=== PATIENT | male | born 1950 | race Caucasian/White ===

== ENCOUNTER 2017-12-17 21:23 | Emergency (ER) | payer MEDICARE ==
[~2017-12-17] VITALS: Ht 170.2 cm; Wt 70.0 kg
[~2017-12-17 21:23] MED LIST: ASPIRIN; ATEN25TA PO; BACI1PAC TP; CLON1PAT TD; DIAZ5TAB4 PO; DOXY100T10 PO; ENAL20TA PO; ENAL5TAB PO; ERGO500017 PO; FOLI-17 PO; FURO-93 PO; HYDR12.53 PO; HYDR25TA6 PO; LACT10SO28 PO; LACT20SO13 PO; MAGN400T7 PO; MAGN71.5; METO25TA35 PO; METR500T PO; MULT-154 PO; NICO-486 TD; NICO-487 TD; PANT40TA3 PO; RIFA550T4 PO; SPIR25TA5 PO; THIA100T10 PO; THIA100T67 PO; TRAM-47 PO
[2017-12-17 21:52] LABS: BASOPHILS # (AUTO) 0.06 x10^3/uL (0-0.1); BASOPHILS % (AUTO) 1 % (0-1); EOSINOPHILS # (AUTO) 0.14 x10^3/uL (0-0.4); EOSINOPHILS % (AUTO) 2 % (1-7); LYMPHOCYTES # (AUTO) 1.89 x10^3/uL (1-3.4); LYMPHOCYTES % (AUTO) 33 % (22-44); MD NO; MEAN CORPUSCULAR HEMOGLOBIN 34.7 pg (27.5-34.5); MEAN CORPUSCULAR VOLUME 99.2 fL (81-97); MEAN PLATELET VOLUME 8.4 fL (7.4-10.4); MONOCYTES # (AUTO) 0.69 x10^3/uL (0.2-0.8); MONOCYTES % (AUTO) 12 % (2-9); NEUTROPHILS # (AUTO) 2.88 x10^3/uL (1.8-6.8); NEUTROPHILS % (AUTO) 51 % (42-75); PLATELET COUNT 102 x10^3/uL (130-400); RED BLOOD COUNT 4.78 x10^6/uL (4.38-5.82); RED CELL DISTRIBUTION WIDTH 14.1 % (9.4-14.8)
[2017-12-17 21:59] LABS: ALANINE AMINOTRANSFERASE 234 U/L (12-78); ALBUMIN 3.9 g/dL (3.4-5.0); ANION GAP 18 mmol/L (5-15); CALCIUM 8.9 mg/dL (8.5-10.1); CHLORIDE 99 mmol/L (98-107); CREATININE 0.97 mg/dL (0.7-1.3)
[2017-12-17 22:01] LABS: ALKALINE PHOSPHATASE 112 U/L (45-117); BILIRUBIN,TOTAL 2.1 mg/dL (0.2-1.0); TOTAL PROTEIN 8.1 g/dL (6.4-8.2)
[2017-12-17 23:03] VITALS: BP 128/83
== END 2017-12-18 00:03 | disposition home or self-care (01) ==
LOC: ED 23:59
DX: F10.120 Alcohol abuse with intoxication, uncomplicated (principal); F19.10 Other psychoactive substance abuse, uncomplicated; Z72.9 Problem related to lifestyle, unspecified; R53.1 Weakness; J44.9 Chronic obstructive pulmonary disease, unspecified; I10 Essential (primary) hypertension
CPT/HCPCS: 36415; 80053; 80307; 85025; 93005; 99285

== ENCOUNTER 2018-02-09 13:29 | Emergency (ER) | payer MEDICARE ==
[~2018-02-09] VITALS: Ht 177.8 cm; Wt 91.0 kg
[2018-02-09] MEDS ORDERED: SODIUM CHLORIDE FLUSH 10ML SYR IVF ONE (14:00)
[2018-02-09] MEDS ORDERED: MAGNESIUM SULFATE 1 GM, THIAMINE 100 MG, FOLIC ACID 1 MG, MVI ADULT 10 ML in SODIUM CHL... IV ONE (14:00)
[2018-02-09 14:12] LABS: ALANINE AMINOTRANSFERASE 129 U/L (12-78); ALBUMIN 3.8 g/dL (3.4-5.0); ANION GAP 15 mmol/L (5-15); CALCIUM 8.2 mg/dL (8.5-10.1); CHLORIDE 102 mmol/L (98-107); CREATININE 0.85 mg/dL (0.7-1.3)
[2018-02-09 14:15] LABS: ALKALINE PHOSPHATASE 84 U/L (45-117); BILIRUBIN,TOTAL 2.4 mg/dL (0.2-1.0); CREATINE KINASE, TOTAL 154 U/L (39-308); TOTAL PROTEIN 7.8 g/dL (6.4-8.2)
[2018-02-09 14:31] LABS: MD SCAN
[2018-02-09 14:32] LABS: BASOPHILS # (AUTO) 0.03 x10^3/uL (0-0.1); BASOPHILS % (AUTO) 1 % (0-1); EOSINOPHILS # (AUTO) 0.08 x10^3/uL (0-0.4); EOSINOPHILS % (AUTO) 2 % (1-7); LYMPHOCYTES # (AUTO) 1.81 x10^3/uL (1-3.4); LYMPHOCYTES % (AUTO) 35 % (22-44); MEAN CORPUSCULAR HEMOGLOBIN 34.6 pg (27.5-34.5); MEAN CORPUSCULAR HGB CONC 34.7 g/dL (33.2-36.2); MEAN CORPUSCULAR VOLUME 99.8 fL (81-97); MEAN PLATELET VOLUME 8.1 fL (7.4-10.4); MONOCYTES # (AUTO) 0.53 x10^3/uL (0.2-0.8); MONOCYTES % (AUTO) 10 % (2-9); NEUTROPHILS # (AUTO) 2.75 x10^3/uL (1.8-6.8); NEUTROPHILS % (AUTO) 53 % (42-75); PLATELET COUNT 89 x10^3/uL (130-400); RED BLOOD COUNT 4.28 x10^6/uL (4.38-5.82); RED CELL DISTRIBUTION WIDTH 14.6 % (9.4-14.8)
[2018-02-09 20:17] VITALS: BP 130/77
== END 2018-02-09 20:33 | disposition home or self-care (01) ==
LOC: ED 14:30
DX: K70.10 Alcoholic hepatitis without ascites (principal); F10.220 Alcohol dependence with intoxication, uncomplicated; I10 Essential (primary) hypertension; J44.9 Chronic obstructive pulmonary disease, unspecified; K74.60 Unspecified cirrhosis of liver
CPT/HCPCS: 36415; 80053; 82550; 85025; 93005; 96365; 96366; 99285; J3411; J3475; J7030

== ENCOUNTER 2018-02-11 14:13 | Inpatient (IN) | payer MEDICARE ==
[~2018-02-11] VITALS: Ht 177.8 cm; Wt 87.0 kg
[2018-02-11] MEDS ORDERED: PLEASE ENTER HEIGHT AND WEIGHT MC SCH (14:30)
[2018-02-11] MEDS ORDERED: SODIUM CHLORIDE FLUSH 10ML SYR IVF ONE (14:30)
[2018-02-11 14:59] LABS: ALANINE AMINOTRANSFERASE 151 U/L (12-78); ALBUMIN 3.8 g/dL (3.4-5.0); ANION GAP 16 mmol/L (5-15); CALCIUM 8.5 mg/dL (8.5-10.1); CHLORIDE 100 mmol/L (98-107); CREATININE 0.86 mg/dL (0.7-1.3)
[2018-02-11 15:07] LABS: ALKALINE PHOSPHATASE 85 U/L (45-117); TOTAL PROTEIN 7.8 g/dL (6.4-8.2)
[2018-02-11 15:34] LABS: MEAN CORPUSCULAR HEMOGLOBIN 34.7 pg (27.5-34.5); MEAN CORPUSCULAR HGB CONC 34.8 g/dL (33.2-36.2); MEAN CORPUSCULAR VOLUME 99.5 fL (81-97); MEAN PLATELET VOLUME 8.4 fL (7.4-10.4); PLATELET COUNT 77 x10^3/uL (130-400); RED BLOOD COUNT 4.14 x10^6/uL (4.38-5.82); RED CELL DISTRIBUTION WIDTH 14.6 % (9.4-14.8)
[2018-02-11 15:35] LABS: BASOPHILS # (AUTO) 0.05 x10^3/uL (0-0.1); BASOPHILS % (AUTO) 1 % (0-1); EOSINOPHILS # (AUTO) 0.11 x10^3/uL (0-0.4); EOSINOPHILS % (AUTO) 2 % (1-7); LYMPHOCYTES % (AUTO) 44 % (22-44); MD SCAN; MONOCYTES # (AUTO) 0.58 x10^3/uL (0.2-0.8); MONOCYTES % (AUTO) 10 % (2-9); NEUTROPHILS # (AUTO) 2.56 x10^3/uL (1.8-6.8); NEUTROPHILS % (AUTO) 43 % (42-75)
[2018-02-11 16:00] LABS: INTERNATIONAL NORMALIZED RATIO 1.19 (0.93-1.1); PROTHROMBIN TIME 12.2 Seconds (9.6-11.5)
[2018-02-11] MEDS ORDERED: ASPI-515 PO (16:28)
[2018-02-11] MEDS ORDERED: OXYcodone IR 5MG TABLET PO PRN (17:00)
[2018-02-11] MEDS ORDERED: ACETAMINOPHEN 500 MG TABLET PO PRN (17:00)
[2018-02-11] MEDS ORDERED: THIAMINE 200 MG in DEXTROSE 5% 50 ML IVPB ONE (17:00)
[2018-02-11] MEDS ORDERED: ONDANSETRON 2MG/ML, 2ML IVPush PRN (17:00)
[2018-02-11] MEDS ORDERED: LORazepam 2 MG/ML, 1ML IV PRN ×5 (17:00)
[2018-02-11] MEDS ORDERED: LORazepam 1MG TABLET PO PRN ×4 (17:00)
[2018-02-11] MEDS ORDERED: LIDODERM 5% PATCH TD PRN (17:00)
[2018-02-11] MEDS ORDERED: hydrALAzine 20 MG/ML, 1ML IVPush PRN (17:00)
[2018-02-11] MEDS ORDERED: BACLOFEN 10 MG TABLET PO PRN (17:00)
[2018-02-11] MEDS ORDERED: ALBUTEROL/IPRATROPIUM 2.5MG/0.5MG, 3 ML ONE (17:25)
[2018-02-11] MEDS ORDERED: ALBUTEROL/IPRATROPIUM 2.5MG/0.5MG, 3 ML NPPB PRN (18:00)
[2018-02-11] MEDS: [UNRECOGNIZED DRUG - OTHER] IV SCH (18:10)
[2018-02-11] MEDS: POTASSIUM CHLORIDE IV SCH (18:10)
[2018-02-11] MEDS: FOLIC ACID IV SCH (18:10)
[2018-02-11] MEDS: THIAMINE IV SCH (18:10)
[2018-02-11] MEDS: MVI ADULT IV SCH (18:10)
[2018-02-11] MEDS: NICOTINE 14MG/24 HR PATCH.TD24 TD SCH (18:11)
[2018-02-11 18:21] VITALS: BP 129/74
[2018-02-11 18:35] VITALS: BP 129/74
[2018-02-11 19:00] VITALS: BP 124/75
[2018-02-12 00:53] VITALS: BP 144/75
[2018-02-12] MEDS: LORazepam 0.5MG TABLET PO PRN (03:02)
[2018-02-12 04:30] LABS: MEAN CORPUSCULAR HEMOGLOBIN 34.8 pg (27.5-34.5); MEAN CORPUSCULAR HGB CONC 34.4 g/dL (33.2-36.2); RED BLOOD COUNT 3.85 x10^6/uL (4.38-5.82); RED CELL DISTRIBUTION WIDTH 14.2 % (9.4-14.8)
[2018-02-12 04:42] LABS: CALCIUM 8.3 mg/dL (8.5-10.1); CHLORIDE 103 mmol/L (98-107)
[2018-02-12 04:47] LABS: ALANINE AMINOTRANSFERASE 134 U/L (12-78); ALBUMIN 3.4 g/dL (3.4-5.0); ALKALINE PHOSPHATASE 77 U/L (45-117); ANION GAP 10 mmol/L (5-15); BILIRUBIN,TOTAL 3.1 mg/dL (0.2-1.0); CREATININE 0.75 mg/dL (0.7-1.3)
[2018-02-12 04:49] LABS: BASOPHILS # (AUTO) 0.03 x10^3/uL (0-0.1); BASOPHILS % (AUTO) 1 % (0-1); EOSINOPHILS # (AUTO) 0.11 x10^3/uL (0-0.4); EOSINOPHILS % (AUTO) 3 % (1-7); LYMPHOCYTES # (AUTO) 1.16 x10^3/uL (1-3.4); LYMPHOCYTES % (AUTO) 31 % (22-44); MD SCAN; MEAN PLATELET VOLUME 8.3 fL (7.4-10.4); MONOCYTES # (AUTO) 0.42 x10^3/uL (0.2-0.8); MONOCYTES % (AUTO) 11 % (2-9); NEUTROPHILS # (AUTO) 2.01 x10^3/uL (1.8-6.8); NEUTROPHILS % (AUTO) 54 % (42-75); PLATELET COUNT 64 x10^3/uL (130-400)
[2018-02-12 07:34] VITALS: BP 158/79
[2018-02-12] MEDS: MULTIVITAMINS/MINERALS TABLET PO SCH (09:10)
[2018-02-12] MEDS: ASPIRIN 81 MG TABLET EC PO SCH (09:10)
[2018-02-12] MEDS: METOPROLOL TARTRATE 25 MG TABLET PO SCH (09:10)
[2018-02-12 13:22] VITALS: BP 138/74
[2018-02-12] MEDS: THIAMINE IV SCH (17:27)
[2018-02-12] MEDS: FOLIC ACID IV SCH (17:27)
[2018-02-12] MEDS: NICOTINE 14MG/24 HR PATCH.TD24 TD SCH (17:27)
[2018-02-12] MEDS: [UNRECOGNIZED DRUG - OTHER] IV SCH (17:27)
[2018-02-12] MEDS: MVI ADULT IV SCH (17:27)
[2018-02-12] MEDS: POTASSIUM CHLORIDE IV SCH (17:27)
[2018-02-12 19:20] VITALS: BP 134/76
[2018-02-13 01:31] VITALS: BP 160/55
[2018-02-13] MEDS: LORazepam 0.5MG TABLET PO PRN ×2 (01:37→09:22)
[2018-02-13 03:14] VITALS: BP 151/82
[2018-02-13 04:55] LABS: CHLORIDE 103 mmol/L (98-107)
[2018-02-13 05:03] LABS: ALANINE AMINOTRANSFERASE 138 U/L (12-78); ALBUMIN 3.1 g/dL (3.4-5.0); ALKALINE PHOSPHATASE 101 U/L (45-117); ANION GAP 8 mmol/L (5-15); BILIRUBIN,TOTAL 4.5 mg/dL (0.2-1.0); CALCIUM 8.4 mg/dL (8.5-10.1); CREATININE 0.72 mg/dL (0.7-1.3); TOTAL PROTEIN 6.7 g/dL (6.4-8.2)
[2018-02-13 05:07] LABS: MEAN CORPUSCULAR HEMOGLOBIN 34.4 pg (27.5-34.5); MEAN CORPUSCULAR HGB CONC 34.2 g/dL (33.2-36.2); MEAN CORPUSCULAR VOLUME 100.7 fL (81-97); RED BLOOD COUNT 3.84 x10^6/uL (4.38-5.82); RED CELL DISTRIBUTION WIDTH 14.3 % (9.4-14.8)
[2018-02-13 05:26] LABS: BASOPHILS # (AUTO) 0.03 x10^3/uL (0-0.1); BASOPHILS % (AUTO) 1 % (0-1); EOSINOPHILS % (AUTO) 3 % (1-7); LYMPHOCYTES # (AUTO) 1.11 x10^3/uL (1-3.4); LYMPHOCYTES % (AUTO) 27 % (22-44); MD SCAN; MEAN PLATELET VOLUME 9.1 fL (7.4-10.4); MONOCYTES % (AUTO) 12 % (2-9); NEUTROPHILS # (AUTO) 2.34 x10^3/uL (1.8-6.8); NEUTROPHILS % (AUTO) 57 % (42-75); PLATELET COUNT 59 x10^3/uL (130-400)
[2018-02-13 07:33] VITALS: BP 145/78
[2018-02-13] MEDS ORDERED: THIAMINE 100 MG in DEXTROSE 5% 50 ML IVPB SCH (09:00)
[2018-02-13] MEDS: ASPIRIN 81 MG TABLET EC PO SCH (09:21)
[2018-02-13] MEDS: MULTIVITAMINS/MINERALS TABLET PO SCH (09:21)
[2018-02-13] MEDS: METOPROLOL TARTRATE 25 MG TABLET PO SCH (09:22)
[2018-02-13] MEDS: SODIUM CHLORIDE 0.9% 1,000 ML IV SCH (10:35)
[2018-02-13] MEDS ORDERED: OMNIPAQUE 350 MG/ML, 100ML BOTTLE ONE (11:34)
[2018-02-13 14:10] VITALS: BP 142/80
[2018-02-13] MEDS: FOLIC ACID IV SCH (18:39)
[2018-02-13] MEDS: [UNRECOGNIZED DRUG - OTHER] IV SCH (18:39)
[2018-02-13] MEDS: POTASSIUM CHLORIDE IV SCH (18:39)
[2018-02-13] MEDS: NICOTINE 14MG/24 HR PATCH.TD24 TD SCH (18:39)
[2018-02-13] MEDS: MVI ADULT IV SCH (18:39)
[2018-02-13] MEDS: THIAMINE IV SCH (18:39)
[2018-02-13 18:55] VITALS: BP 129/78
[2018-02-14 01:19] VITALS: BP 147/87
[2018-02-14] MEDS: SODIUM CHLORIDE 0.9% 1,000 ML IV SCH ×2 (05:27→19:42)
[2018-02-14 05:40] LABS: MEAN CORPUSCULAR HEMOGLOBIN 34.6 pg (27.5-34.5); MEAN CORPUSCULAR HGB CONC 34.3 g/dL (33.2-36.2); MEAN CORPUSCULAR VOLUME 100.9 fL (81-97); RED BLOOD COUNT 3.92 x10^6/uL (4.38-5.82); RED CELL DISTRIBUTION WIDTH 14.6 % (9.4-14.8)
[2018-02-14 05:44] LABS: ALBUMIN 3.1 g/dL (3.4-5.0); ANION GAP 7 mmol/L (5-15); CALCIUM 8.5 mg/dL (8.5-10.1); CHLORIDE 104 mmol/L (98-107)
[2018-02-14 05:47] LABS: ALANINE AMINOTRANSFERASE 229 U/L (12-78); ALKALINE PHOSPHATASE 133 U/L (45-117); BILIRUBIN,TOTAL 5.1 mg/dL (0.2-1.0); CREATININE 0.71 mg/dL (0.7-1.3); TOTAL PROTEIN 6.8 g/dL (6.4-8.2)
[2018-02-14 06:05] LABS: BASOPHILS # (AUTO) 0.03 x10^3/uL (0-0.1); BASOPHILS % (AUTO) 1 % (0-1); EOSINOPHILS # (AUTO) 0.21 x10^3/uL (0-0.4); EOSINOPHILS % (AUTO) 4 % (1-7); LYMPHOCYTES # (AUTO) 1.34 x10^3/uL (1-3.4); LYMPHOCYTES % (AUTO) 28 % (22-44); MD SCAN; MEAN PLATELET VOLUME 9.5 fL (7.4-10.4); MONOCYTES # (AUTO) 0.54 x10^3/uL (0.2-0.8); MONOCYTES % (AUTO) 11 % (2-9); NEUTROPHILS # (AUTO) 2.68 x10^3/uL (1.8-6.8); NEUTROPHILS % (AUTO) 56 % (42-75); PLATELET COUNT 63 x10^3/uL (130-400)
[2018-02-14 07:26] LABS: ACETAMINOPHEN < 2 mcg/mL (10-30)
[2018-02-14 07:42] VITALS: BP 161/86
[2018-02-14] MEDS: ASPIRIN 81 MG TABLET EC PO SCH (08:17)
[2018-02-14] MEDS: METOPROLOL TARTRATE 25 MG TABLET PO SCH (08:17)
[2018-02-14] MEDS: MULTIVITAMINS/MINERALS TABLET PO SCH (08:18)
[2018-02-14 12:53] VITALS: BP 163/89
[2018-02-14 14:39] LABS: ANA SCREEN NEGATIVE (Negative)
[2018-02-14] MEDS: MVI ADULT IV SCH (17:23)
[2018-02-14] MEDS: FOLIC ACID IV SCH (17:23)
[2018-02-14] MEDS: [UNRECOGNIZED DRUG - OTHER] IV SCH (17:23)
[2018-02-14] MEDS: POTASSIUM CHLORIDE IV SCH (17:23)
[2018-02-14] MEDS: THIAMINE IV SCH (17:23)
[2018-02-14] MEDS: NICOTINE 14MG/24 HR PATCH.TD24 TD SCH (17:24)
[2018-02-14 19:01] VITALS: BP 143/82
[2018-02-14] MEDS: TRAZODONE 50MG TABLET PO PRN (22:05)
[2018-02-15 00:41] VITALS: BP 158/91
[2018-02-15 05:04] LABS: ANION GAP 4 mmol/L (5-15); CALCIUM 8.8 mg/dL (8.5-10.1); CHLORIDE 106 mmol/L (98-107)
[2018-02-15 05:06] LABS: MEAN CORPUSCULAR VOLUME 103.1 fL (81-97); MEAN PLATELET VOLUME 9.3 fL (7.4-10.4); PLATELET COUNT 78 x10^3/uL (130-400); RED BLOOD COUNT 3.94 x10^6/uL (4.38-5.82); RED CELL DISTRIBUTION WIDTH 14.7 % (9.4-14.8)
[2018-02-15 05:08] LABS: ALANINE AMINOTRANSFERASE 185 U/L (12-78); ALKALINE PHOSPHATASE 130 U/L (45-117); BILIRUBIN,TOTAL 4.1 mg/dL (0.2-1.0); CREATININE 0.74 mg/dL (0.7-1.3); TOTAL PROTEIN 6.8 g/dL (6.4-8.2)
[2018-02-15 05:47] LABS: BASOPHILS # (AUTO) 0.04 x10^3/uL (0-0.1); BASOPHILS % (AUTO) 1 % (0-1); EOSINOPHILS # (AUTO) 0.31 x10^3/uL (0-0.4); EOSINOPHILS % (AUTO) 6 % (1-7); LYMPHOCYTES % (AUTO) 24 % (22-44); MD SCAN; MONOCYTES # (AUTO) 0.71 x10^3/uL (0.2-0.8); MONOCYTES % (AUTO) 13 % (2-9); NEUTROPHILS # (AUTO) 3.15 x10^3/uL (1.8-6.8); NEUTROPHILS % (AUTO) 57 % (42-75)
[2018-02-15 07:00] VITALS: BP 167/95
[2018-02-15] MEDS: MULTIVITAMINS/MINERALS TABLET PO SCH (08:27)
[2018-02-15] MEDS: ASPIRIN 81 MG TABLET EC PO SCH (08:28)
[2018-02-15] MEDS: METOPROLOL TARTRATE 25 MG TABLET PO SCH (08:28)
[2018-02-15 10:15] VITALS: BP 170/82
[2018-02-15] MEDS ORDERED: hydrALAzine 20 MG/ML, 1ML IV ONE (10:30)
[2018-02-15 11:49] VITALS: BP 153/88
[2018-02-15] MEDS ORDERED: AMLODIPINE 2.5 MG TABLET PO SCH (13:00)
[2018-02-15 13:44] VITALS: BP 146/82
[2018-02-15] MEDS: FOLIC ACID IV SCH (16:52)
[2018-02-15] MEDS: MVI ADULT IV SCH (16:52)
[2018-02-15] MEDS: THIAMINE IV SCH (16:52)
[2018-02-15] MEDS: POTASSIUM CHLORIDE IV SCH (16:52)
[2018-02-15] MEDS: [UNRECOGNIZED DRUG - OTHER] IV SCH (16:52)
[2018-02-15] MEDS: NICOTINE 14MG/24 HR PATCH.TD24 TD SCH (16:52)
[2018-02-15 19:01] VITALS: BP 157/78
[2018-02-15] MEDS: TRAZODONE 50MG TABLET PO PRN (21:35)
[2018-02-16 01:43] VITALS: BP_SYST 130; BP_SYST 179; BP_DIAS 111; BP_DIAS 79
[2018-02-16 04:12] LABS: BASOPHILS # (AUTO) 0.05 x10^3/uL (0-0.1); BASOPHILS % (AUTO) 1 % (0-1); EOSINOPHILS # (AUTO) 0.32 x10^3/uL (0-0.4); EOSINOPHILS % (AUTO) 6 % (1-7); LYMPHOCYTES # (AUTO) 1.39 x10^3/uL (1-3.4); LYMPHOCYTES % (AUTO) 25 % (22-44); MD NO; MEAN CORPUSCULAR HGB CONC 33.5 g/dL (33.2-36.2); MEAN CORPUSCULAR VOLUME 101.5 fL (81-97); MEAN PLATELET VOLUME 9.4 fL (7.4-10.4); MONOCYTES # (AUTO) 1.05 x10^3/uL (0.2-0.8); MONOCYTES % (AUTO) 19 % (2-9); NEUTROPHILS # (AUTO) 2.86 x10^3/uL (1.8-6.8); NEUTROPHILS % (AUTO) 51 % (42-75); PLATELET COUNT 104 x10^3/uL (130-400); RED BLOOD COUNT 4.06 x10^6/uL (4.38-5.82); RED CELL DISTRIBUTION WIDTH 15.1 % (9.4-14.8)
[2018-02-16 04:20] LABS: ALANINE AMINOTRANSFERASE 150 U/L (12-78); ALBUMIN 2.9 g/dL (3.4-5.0); ANION GAP 10 mmol/L (5-15); CALCIUM 8.6 mg/dL (8.5-10.1); CHLORIDE 106 mmol/L (98-107); CREATININE 0.73 mg/dL (0.7-1.3)
[2018-02-16 04:23] LABS: ALKALINE PHOSPHATASE 132 U/L (45-117); BILIRUBIN,TOTAL 3.1 mg/dL (0.2-1.0); TOTAL PROTEIN 6.8 g/dL (6.4-8.2)
[2018-02-16] MEDS ORDERED: POTASSIUM CHLORIDE 20 MEQ TAB.ER.PRT PO ONE (06:30)
[2018-02-16 07:39] VITALS: BP 128/80
[2018-02-16] MEDS ORDERED: FOLIC ACID 1 MG TABLET PO SCH (09:00)
[2018-02-16] MEDS ORDERED: THIAMINE 100MG TABLET PO SCH (09:00)
== END 2018-02-16 09:59 | disposition left against medical advice (07) | DRG 432 ==
LOC: ED 15:59 → EDIP 16:00 → ED 16:10 → 3NE 16:26
PROVIDERS: ADMIT Internal Medicine; ATTEND Internal Medicine
DX: K70.10 Alcoholic hepatitis without ascites (principal); J96.01 Acute respiratory failure with hypoxia; J98.11 Atelectasis; G47.33 Obstructive sleep apnea (adult) (pediatric); I10 Essential (primary) hypertension; J44.9 Chronic obstructive pulmonary disease, unspecified; D69.6 Thrombocytopenia, unspecified; F10.229 Alcohol dependence with intoxication, unspecified; E03.9 Hypothyroidism, unspecified; I27.20 Pulmonary hypertension, unspecified; R29.6 Repeated falls; R32 Unspecified urinary incontinence; Z60.2 Problems related to living alone; Z53.21 Procedure and treatment not carried out due to patient leaving prior to being seen by health care provider; R62.7 Adult failure to thrive; S16.1XXA Strain of muscle, fascia and tendon at neck level, initial encounter; W18.30XA Fall on same level, unspecified, initial encounter; Y93.89 Activity, other specified; Z87.891 Personal history of nicotine dependence; Y92.89 Other specified places as the place of occurrence of the external cause; Y99.2 Volunteer activity; Z99.81 Dependence on supplemental oxygen; Z90.49 Acquired absence of other specified parts of digestive tract; Z82.5 Family history of asthma and other chronic lower respiratory diseases; Z82.49 Family history of ischemic heart disease and other diseases of the circulatory system
CPT/HCPCS: 36415; 70450; 71045; 71275; 72125; 74181; 76700; 80053; 80074; 80307; 82140; 82248; 83735; 83880; 84439; 84443; 85025; 85610; 86038; 93306; 94640; 99285; G0378; J3411; J3480; J7042; J7620; Q9967; J0360; J2060; J7030

== ENCOUNTER 2018-05-19 14:36 | Inpatient (IN) | payer MEDICARE ==
[~2018-05-19] VITALS: Ht 177.8 cm; Wt 84.7 kg
[~2018-05-19 14:36] MED LIST changes: +ASPI-515 PO; +HYDR12.517 PO; -HYDR12.53 PO; +MULT1TAB60 PO
--- NOTE | 2018-05-19 14:40 | NUR ---
TASK RN: FIRST CONTACT WITH PT. PT BROUGHT IN BY EMS DUE TO "I CAN'T BREATHE, I AM A DRUNK." NADN. PT IS 94% ON ROOM AIR PER EMS. PT RESTING ON GURNEY. ALL SAFETY MEASURES IN PLACE. PT CONNECTED TO NIBP AND CONTINOUS PULSE OX.
--- NOTE | 2018-05-19 14:56 | NUR ---
TASK RN: Provided pt medication per EMAR. No needs expressed at this time. X-ray at bedside.
--- NOTE | 2018-05-19 14:58 | NUR ---
TASK RN: Pt states, "I don't know if I took my metoprolol today".
[2018-05-19] MEDS ORDERED: ALBUTEROL/IPRATROPIUM 2.5MG/0.5MG, 3 ML NPPB SCH (15:00)
[2018-05-19] MEDS ORDERED: PLEASE ENTER HEIGHT AND WEIGHT MC SCH (15:00)
[2018-05-19 15:03] LABS: BASOPHILS # (AUTO) 0.07 x10^3/uL (0-0.1); BASOPHILS % (AUTO) 1 % (0-1); EOSINOPHILS # (AUTO) 0.03 x10^3/uL (0-0.4); EOSINOPHILS % (AUTO) 0 % (1-7); LYMPHOCYTES # (AUTO) 2.87 x10^3/uL (1-3.4); LYMPHOCYTES % (AUTO) 39 % (22-44); MD NO; MEAN CORPUSCULAR HEMOGLOBIN 33.7 pg (27.5-34.5); MEAN CORPUSCULAR HGB CONC 33.3 g/dL (33.2-36.2); MEAN PLATELET VOLUME 8.1 fL (7.4-10.4); MONOCYTES % (AUTO) 7 % (2-9); NEUTROPHILS # (AUTO) 3.87 x10^3/uL (1.8-6.8); NEUTROPHILS % (AUTO) 53 % (42-75); PLATELET COUNT 208 x10^3/uL (130-400); RED BLOOD COUNT 4.65 x10^6/uL (4.38-5.82); RED CELL DISTRIBUTION WIDTH 15.1 % (9.4-14.8)
--- NOTE | 2018-05-19 15:08 | NUR ---
REPORT FROM LETITIA RICHEY RN. ASSUMED CARE OF PATIENT AT THIS TIME.
[2018-05-19 15:19] LABS: TROPONIN I < 0.015 ng/mL (0.000-0.045)
[2018-05-19 15:22] LABS: ALANINE AMINOTRANSFERASE 140 U/L (12-78); ANION GAP 20 mmol/L (5-15); CALCIUM 8.7 mg/dL (8.5-10.1); CHLORIDE 97 mmol/L (98-107)
[2018-05-19 15:25] LABS: ALKALINE PHOSPHATASE 120 U/L (45-117); BILIRUBIN,TOTAL 2.3 mg/dL (0.2-1.0); TOTAL PROTEIN 8.2 g/dL (6.4-8.2)
[2018-05-19] MEDS ORDERED: ALBUTEROL/IPRATROPIUM 2.5MG/0.5MG, 3 ML ONE (15:25)
--- NOTE | 2018-05-19 15:25 | NUR ---
PATIENT 84% RA, SUPPLEMENTAL O2 GIVEN, NOW 94% 2L NC. NAD NOTED.
--- NOTE | 2018-05-19 15:35 | NUR ---
IV ESTABLISHED, PATIENT TO CT VIA RNEY AT THIS TIME, A+OX4.
[2018-05-19] MEDS ORDERED: OMNIPAQUE 350 MG/ML, 100ML BOTTLE ONE (16:03)
[2018-05-19] MEDS ORDERED: SODIUM CHLORIDE FLUSH 10ML SYR IVF PRN (17:00)
--- NOTE | 2018-05-19 17:12 | NUR ---
REPORT TO KHAI MURGUIA.
--- NOTE | 2018-05-19 17:18 | NUR ---
PATIENT BEING TRANSFERRED/ADMITTED TO HOSPITAL BED UPSTAIRS AT THIS TIME, PATIENT A+OX4, NADN.
[2018-05-19] MEDS ORDERED: ONDANSETRON ODT 4 MG PO PRN (17:30)
[2018-05-19] MEDS ORDERED: ONDANSETRON 2MG/ML, 2ML IVPush PRN (17:30)
[2018-05-19] MEDS ORDERED: LORazepam 1MG TABLET PO PRN (17:30)
[2018-05-19] MEDS ORDERED: LORazepam 2 MG/ML, 1ML IV PRN ×3 (17:30)
[2018-05-19 17:32] VITALS: BP 169/89
[2018-05-19] MEDS: CHLORDIAZEPOXIDE 10 MG CAPSULE PO SCH (18:04)
[2018-05-19] MEDS: DOXYCYCLINE 100 MG in DEXTROSE 5% 250 ML IV SCH (18:04)
[2018-05-19] MEDS: methylPREDNISolone SOD SUCC 125 MG/2 ML IVPush SCH (18:04)
[2018-05-19] MEDS: NICOTINE 14MG/24 HR PATCH.TD24 TD SCH (18:04)
[2018-05-19] MEDS ORDERED: ALBUTEROL/IPRATROPIUM 2.5MG/0.5MG, 3 ML NPPB PRN (18:30)
[2018-05-19 19:00] VITALS: BP 161/82
[2018-05-19] MEDS: METOPROLOL TARTRATE 25 MG TABLET PO SCH (20:42)
[2018-05-19] MEDS: POTASSIUM CHLORIDE 20 MEQ, MAGNESIUM SULFATE 2 GM, THIAMINE 200 MG, MVI ADULT 10 ML, FO... IV SCH (20:43)
[2018-05-19] MEDS: LORazepam 0.5MG TABLET PO PRN (20:59)
[2018-05-20 01:51] VITALS: BP 138/81
[2018-05-20] MEDS: methylPREDNISolone SOD SUCC 125 MG/2 ML IVPush SCH ×2 (01:54→11:22)
[2018-05-20] MEDS: CHLORDIAZEPOXIDE 10 MG CAPSULE PO SCH ×4 (01:54→21:08)
[2018-05-20 06:26] LABS: BASOPHILS # (AUTO) 0.01 x10^3/uL (0-0.1); BASOPHILS % (AUTO) 0 % (0-1); EOSINOPHILS % (AUTO) 0 % (1-7); LYMPHOCYTES % (AUTO) 11 % (22-44); MD NO; MEAN CORPUSCULAR HEMOGLOBIN 34.4 pg (27.5-34.5); MEAN CORPUSCULAR HGB CONC 34.5 g/dL (33.2-36.2); MEAN CORPUSCULAR VOLUME 99.8 fL (81-97); MEAN PLATELET VOLUME 8.5 fL (7.4-10.4); MONOCYTES # (AUTO) 0.15 x10^3/uL (0.2-0.8); MONOCYTES % (AUTO) 4 % (2-9); NEUTROPHILS # (AUTO) 3.78 x10^3/uL (1.8-6.8); NEUTROPHILS % (AUTO) 85 % (42-75); PLATELET COUNT 132 x10^3/uL (130-400); RED BLOOD COUNT 4.19 x10^6/uL (4.38-5.82); RED CELL DISTRIBUTION WIDTH 14.6 % (9.4-14.8)
[2018-05-20 06:29] VITALS: BP 164/82
[2018-05-20] MEDS: DOXYCYCLINE 100 MG in DEXTROSE 5% 250 ML IV SCH ×2 (06:36→18:04)
[2018-05-20 06:40] LABS: CHLORIDE 100 mmol/L (98-107)
[2018-05-20 07:11] LABS: ALANINE AMINOTRANSFERASE 133 U/L (12-78); ALBUMIN 3.5 g/dL (3.4-5.0); ALKALINE PHOSPHATASE 113 U/L (45-117); ANION GAP 12 mmol/L (5-15); BILIRUBIN,TOTAL 3.9 mg/dL (0.2-1.0); CALCIUM 8.7 mg/dL (8.5-10.1); CREATININE 0.86 mg/dL (0.7-1.3); THYROID STIMULATING HORMONE 0.817 mIU/L (0.358-3.740); TOTAL PROTEIN 7.3 g/dL (6.4-8.2)
[2018-05-20] MEDS: LORazepam 0.5MG TABLET PO PRN (08:15)
[2018-05-20] MEDS: METOPROLOL TARTRATE 25 MG TABLET PO SCH ×2 (08:16→21:08)
[2018-05-20 13:06] VITALS: BP 146/78
[2018-05-20] MEDS: NICOTINE 14MG/24 HR PATCH.TD24 TD SCH (18:04)
[2018-05-20 19:14] VITALS: BP 137/78
[2018-05-20 21:07] VITALS: BP 121/80
[2018-05-20] MEDS: POTASSIUM CHLORIDE 20 MEQ, MAGNESIUM SULFATE 2 GM, THIAMINE 200 MG, MVI ADULT 10 ML, FO... IV SCH (21:31)
[2018-05-21 02:42] VITALS: BP 132/77
[2018-05-21 06:01] LABS: ALANINE AMINOTRANSFERASE 131 U/L (12-78); ALBUMIN 3.1 g/dL (3.4-5.0); ANION GAP 3 mmol/L (5-15); CHLORIDE 104 mmol/L (98-107)
[2018-05-21 06:04] LABS: ALKALINE PHOSPHATASE 99 U/L (45-117); BILIRUBIN,TOTAL 4.2 mg/dL (0.2-1.0); TOTAL PROTEIN 6.5 g/dL (6.4-8.2)
[2018-05-21] MEDS: DOXYCYCLINE 100 MG in DEXTROSE 5% 250 ML IV SCH (06:12)
[2018-05-21 08:41] VITALS: BP 124/76
[2018-05-21] MEDS: METOPROLOL TARTRATE 25 MG TABLET PO SCH (08:43)
[2018-05-21] MEDS: CHLORDIAZEPOXIDE 10 MG CAPSULE PO SCH ×2 (08:43→16:37)
[2018-05-21 14:25] VITALS: BP 133/79
[2018-05-21] MEDS ORDERED: DOXY100T PO (16:13)
[2018-05-21] MEDS ORDERED: PRED10TA PO (16:13)
[2018-05-21] MEDS ORDERED: FOLI-17 PO (16:13)
[2018-05-21] MEDS ORDERED: THIA100T10 PO (16:13)
[2018-05-21] MEDS: NICOTINE 14MG/24 HR PATCH.TD24 TD SCH (16:37)
[2018-05-21] MEDS ORDERED: ALBU6.7H INH (17:37)
== END 2018-05-21 17:54 | disposition home or self-care (01) | DRG 432 ==
LOC: ED 14:50 → EDIP 16:45 → 4WST 17:30
PROVIDERS: ADMIT Internal Medicine; ATTEND Internal Medicine
DX: K70.40 Alcoholic hepatic failure without coma (principal); J96.01 Acute respiratory failure with hypoxia; J44.1 Chronic obstructive pulmonary disease with (acute) exacerbation; F10.239 Alcohol dependence with withdrawal, unspecified; K70.30 Alcoholic cirrhosis of liver without ascites; F10.229 Alcohol dependence with intoxication, unspecified; K70.10 Alcoholic hepatitis without ascites; F17.210 Nicotine dependence, cigarettes, uncomplicated; G47.33 Obstructive sleep apnea (adult) (pediatric); I10 Essential (primary) hypertension; Z82.49 Family history of ischemic heart disease and other diseases of the circulatory system; Z82.5 Family history of asthma and other chronic lower respiratory diseases; Z90.49 Acquired absence of other specified parts of digestive tract
CPT/HCPCS: 36415; 71045; 71275; 80053; 83735; 84100; 84443; 84484; 85025; 93005; 94640; 99285; G0378; J3411; J3475; J3480; J7042; J7060; J7620; Q9967; J2930; J7512

== ENCOUNTER 2018-11-12 20:21 | Emergency (ER) | payer MEDICARE ==
[~2018-11-12] VITALS: Ht 177.8 cm; Wt 82.0 kg
[~2018-11-12 20:21] MED LIST changes: +ALBU6.7H INH; +DOXY100T PO; +PRED10TA PO
[2018-11-12 20:26] VITALS: BP 127/81
--- NOTE | 2018-11-12 20:32 | NUR ---
TECH IN ROOM TO PERFORM EKG. PER TECH PT STATED "TELL YOUR I WANT TO HAVE SEX WITH YOU" THIS RN WAS NOTIFIED OF THIS STATEMENT AND ASKED THE PT IF THIS WAS STATED. PT CONFIRMED. PT EDUCATED THAT THIS BEHAVIOR IS UNEXCEPTABLE AND IS NOT ALLOWED IN THIS FACILITY. PT REQUESTED THIS RN TO APOLOGIZE TO THE TECH.
[2018-11-12] MEDS ORDERED: SODIUM CHLORIDE FLUSH 10ML SYR IVF ONE (21:00)
[2018-11-12] MEDS ORDERED: SODIUM CHLORIDE 0.9% 1,000ML IVBOLUS ONE (21:00)
[2018-11-12] MEDS ORDERED: LORazepam 2 MG/ML, 1ML IVPush ONE (21:00)
[2018-11-12 21:04] LABS: ALBUMIN 3.4 g/dL (3.4-5.0); ANION GAP 12 mmol/L (5-15); CHLORIDE 106 mmol/L (98-107); CREATININE 0.87 mg/dL (0.7-1.3)
[2018-11-12 21:09] LABS: TROPONIN I < 0.015 ng/mL (0.000-0.045)
--- NOTE | 2018-11-12 21:20 | NUR ---
IN ROOM TO MEDICATE PT. AT THIS TIME PT REFUSES MEDICATIONS STATING "I DON'T LIKE YOU. I DON'T WANT ANYTHING FROM YOU. I JUST WANT TO LEAVE." MADE AWARE. DUSTIN SIGNED
[2018-11-12 21:29] LABS: BASOPHILS # (AUTO) 0.05 x10^3/uL (0-0.1); BASOPHILS % (AUTO) 1 % (0-1); EOSINOPHILS # (AUTO) 0.23 x10^3/uL (0-0.4); EOSINOPHILS % (AUTO) 3 % (1-7); LYMPHOCYTES # (AUTO) 3.55 x10^3/uL (1-3.4); LYMPHOCYTES % (AUTO) 51 % (22-44); MD SCAN; MEAN CORPUSCULAR HEMOGLOBIN 37.1 pg (27.5-34.5); MEAN CORPUSCULAR HGB CONC 33.9 g/dL (33.2-36.2); MEAN CORPUSCULAR VOLUME 109.5 fL (81-97); MEAN PLATELET VOLUME 8.6 fL (7.4-10.4); MONOCYTES # (AUTO) 0.56 x10^3/uL (0.2-0.8); MONOCYTES % (AUTO) 8 % (2-9); NEUTROPHILS # (AUTO) 2.61 x10^3/uL (1.8-6.8); NEUTROPHILS % (AUTO) 37 % (42-75); PLATELET COUNT 141 x10^3/uL (130-400); RED BLOOD COUNT 4.03 x10^6/uL (4.38-5.82)
== END 2018-11-12 21:28 | disposition left against medical advice (07) ==
LOC: ED 21:22
DX: R07.89 Other chest pain (principal); F10.220 Alcohol dependence with intoxication, uncomplicated; Z72.9 Problem related to lifestyle, unspecified; I10 Essential (primary) hypertension; J44.9 Chronic obstructive pulmonary disease, unspecified; Z90.49 Acquired absence of other specified parts of digestive tract
CPT/HCPCS: 36415; 71045; 80048; 80307; 82040; 84484; 85025; 93005; 99284

== ENCOUNTER 2019-08-20 04:35 | Inpatient (IN) | payer MEDICARE, OTHER ==
[~2019-08-20] VITALS: Ht 177.8 cm; Wt 89.4 kg
[~2019-08-20 04:35] MED LIST changes: -ALBU6.7H INH; +ALBU6.7H8 INH; -DOXY100T10 PO; +DOXY100T23 PO; -MAGN400T7 PO; +MAGN400T9 PO
--- NOTE | 2019-08-20 04:43 | NUR ---
Patient BIB [facility] c/o SOB and CP since 1700 last night. Patient has a hx of COPD. Patient has a chronic cough from his COPD. Patient denies fevers. Patient states he has 4/10 CP and it is on the left and right side of his chest and does not radiate. He describes it as pressure. Denies nausea. Patient took 324mg ASA GARMENT SORTER of EMS. No interventions by EMS. Patient is in NAD. Respirations even and unlabored.
--- NOTE | 2019-08-20 04:46 | NUR ---
Per EMS, patient was 84% on RA. He wears 2lpm of O2 at home at night.
[2019-08-20] MEDS ORDERED: SODIUM CHLORIDE FLUSH 10ML SYR IVF ONE (05:00)
[2019-08-20] MEDS ORDERED: NITROGLYCERIN SINGLE TAB 0.4 MG SL PRN (05:00)
[2019-08-20] MEDS ORDERED: NITROGLYCERIN SINGLE TAB 0.4 MG SL ONE (05:07)
--- NOTE | 2019-08-20 05:32 | NUR ---
After Nitro, patient states CP is only on the right side now. Still a 4/10. Patient states that is tolerable and denies need for further meds.
[2019-08-20 05:50] LABS: BASOPHILS # (AUTO) 0.04 x10^3/uL (0-0.1); BASOPHILS % (AUTO) 1 % (0-1); EOSINOPHILS # (AUTO) 0.25 x10^3/uL (0-0.4); EOSINOPHILS % (AUTO) 4 % (1-7); LYMPHOCYTES % (AUTO) 43 % (22-44); MD NO; MEAN CORPUSCULAR HEMOGLOBIN 34.6 pg (27.5-34.5); MEAN CORPUSCULAR HGB CONC 34.4 g/dL (33.2-36.2); MEAN CORPUSCULAR VOLUME 100.8 fL (81-97); MEAN PLATELET VOLUME 8.3 fL (7.4-10.4); MONOCYTES # (AUTO) 0.61 x10^3/uL (0.2-0.8); MONOCYTES % (AUTO) 10 % (2-9); NEUTROPHILS # (AUTO) 2.47 x10^3/uL (1.8-6.8); NEUTROPHILS % (AUTO) 42 % (42-75); PLATELET COUNT 130 x10^3/uL (130-400); RED BLOOD COUNT 4.23 x10^6/uL (4.38-5.82); RED CELL DISTRIBUTION WIDTH 14.4 % (9.4-14.8)
[2019-08-20 05:51] LABS: ALANINE AMINOTRANSFERASE 34 U/L (12-78); ALBUMIN 3.2 g/dL (3.4-5.0); ANION GAP 10 mmol/L (5-15); CALCIUM 8.7 mg/dL (8.5-10.1); CHLORIDE 109 mmol/L (98-107); CREATININE 0.91 mg/dL (0.7-1.3)
[2019-08-20 05:55] LABS: ALKALINE PHOSPHATASE 130 U/L (45-117); BILIRUBIN,TOTAL 1.9 mg/dL (0.2-1.0); TOTAL PROTEIN 7.3 g/dL (6.4-8.2); TROPONIN I < 0.015 ng/mL (0.000-0.045)
--- NOTE | 2019-08-20 07:04 | NUR ---
REPORT RECEIVED FROM KHAI CANELA. RN TO GIVE PRIMARY RN REPORT ONCE SHE ARRIVES TO FLOOR.
[2019-08-20] MEDS ORDERED: ALBUTEROL/IPRATROPIUM 2.5MG/0.5MG, 3 ML ONE (07:05)
[2019-08-20] MEDS ORDERED: LABETALOL 5MG/ML, 20ML IVPush PRN (07:30)
[2019-08-20] MEDS ORDERED: GUAIFENESIN/COD200MG-20MG/10ML LIQUID PO PRN (07:30)
[2019-08-20] MEDS ORDERED: CYCLOBENZAPRINE 10 MG TABLET PO PRN (07:30)
[2019-08-20] MEDS ORDERED: METOCLOPRAMIDE 5 MG/ML, 2ML IVPush PRN (07:30)
[2019-08-20] MEDS ORDERED: DOCUSATE 100 MG CAPSULE PO PRN (07:30)
[2019-08-20] MEDS ORDERED: POLYETHYLENE GLYCOL 17 GM PACKET PO PRN (07:30)
[2019-08-20] MEDS ORDERED: hydrALAzine 20 MG/ML, 1ML IVPush PRN (07:30)
[2019-08-20] MEDS ORDERED: ONDANSETRON ODT 4 MG PO PRN (07:30)
[2019-08-20] MEDS ORDERED: TRAZODONE 50MG TABLET PO PRN (07:30)
[2019-08-20] MEDS ORDERED: LIDODERM 5% PATCH TD PRN (07:30)
[2019-08-20] MEDS: SODIUM CHLORIDE 0.9% 1,000 ML IV SCH ×2 (08:26→19:49)
[2019-08-20] MEDS ORDERED: AZITHROMYCIN 500 MG TABLET PO ONE (08:54)
[2019-08-20] MEDS: FOLIC ACID 1 MG TABLET PO SCH (10:57)
[2019-08-20] MEDS: ENOXAPARIN 40 MG/0.4 ML SQ SCH (10:57)
[2019-08-20] MEDS: methylPREDNISolone SOD SUCC 125 MG/2 ML IVPush SCH ×2 (10:58→19:49)
[2019-08-20] MEDS: METOPROLOL TARTRATE 25 MG TAB PO SCH ×2 (10:58→19:49)
[2019-08-20] MEDS: FAMOTIDINE 20 MG TABLET PO SCH ×2 (10:58→19:50)
[2019-08-20] MEDS: ALBUTEROL/IPRATROPIUM 2.5MG/0.5MG, 3 ML NPPB SCH ×3 (11:00→19:03)
[2019-08-20] MEDS: THIAMINE 100MG TABLET PO SCH (11:04)
[2019-08-20 12:05] LABS: BILIRUBIN, DIRECT 0.7 mg/dL (0.1-0.2); TROPONIN I < 0.015 ng/mL (0.000-0.045)
[2019-08-20 13:50] VITALS: BP 148/68
[2019-08-20 17:37] LABS: TROPONIN I < 0.015 ng/mL (0.000-0.045)
[2019-08-20 18:55] VITALS: BP 158/76
[2019-08-21 01:39] VITALS: BP 153/74
[2019-08-21] MEDS: methylPREDNISolone SOD SUCC 125 MG/2 ML IVPush SCH ×3 (03:32→20:33)
[2019-08-21 05:53] LABS: ALBUMIN 3.1 g/dL (3.4-5.0); ANION GAP 7 mmol/L (5-15); CALCIUM 8.6 mg/dL (8.5-10.1); CHLORIDE 105 mmol/L (98-107)
[2019-08-21 05:55] LABS: BASOPHILS # (AUTO) 0.01 x10^3/uL (0-0.1); BASOPHILS % (AUTO) 0 % (0-1); EOSINOPHILS % (AUTO) 0 % (1-7); LYMPHOCYTES # (AUTO) 0.79 x10^3/uL (1-3.4); LYMPHOCYTES % (AUTO) 21 % (22-44); MD NO; MEAN CORPUSCULAR HEMOGLOBIN 34.5 pg (27.5-34.5); MEAN CORPUSCULAR HGB CONC 34.6 g/dL (33.2-36.2); MEAN CORPUSCULAR VOLUME 99.7 fL (81-97); MEAN PLATELET VOLUME 7.9 fL (7.4-10.4); MONOCYTES # (AUTO) 0.17 x10^3/uL (0.2-0.8); MONOCYTES % (AUTO) 5 % (2-9); NEUTROPHILS # (AUTO) 2.75 x10^3/uL (1.8-6.8); NEUTROPHILS % (AUTO) 74 % (42-75); PLATELET COUNT 116 x10^3/uL (130-400); RED CELL DISTRIBUTION WIDTH 13.8 % (9.4-14.8)
[2019-08-21 05:56] LABS: ALANINE AMINOTRANSFERASE 31 U/L (12-78); ALKALINE PHOSPHATASE 89 U/L (45-117); BILIRUBIN,TOTAL 4.1 mg/dL (0.2-1.0); CREATININE 0.82 mg/dL (0.7-1.3); TOTAL PROTEIN 7.2 g/dL (6.4-8.2)
[2019-08-21 06:29] VITALS: BP 168/68
[2019-08-21] MEDS ORDERED: MAGNESIUM SULFATE PMX 2GM/50ML 50 ML IV ONE ×3 (06:30→09:30)
[2019-08-21] MEDS: ALBUTEROL/IPRATROPIUM 2.5MG/0.5MG, 3 ML NPPB SCH ×4 (07:15→20:20)
[2019-08-21] MEDS: METOPROLOL TARTRATE 25 MG TAB PO SCH ×2 (08:42→20:33)
[2019-08-21] MEDS: FOLIC ACID 1 MG TABLET PO SCH (08:42)
[2019-08-21] MEDS: THIAMINE 100MG TABLET PO SCH (08:43)
[2019-08-21] MEDS: FAMOTIDINE 20 MG TABLET PO SCH ×2 (08:43→20:33)
[2019-08-21] MEDS ORDERED: AZITHROMYCIN 250 MG TABLET PO SCH (09:00)
[2019-08-21] MEDS: ENOXAPARIN 40 MG/0.4 ML SQ SCH (10:59)
[2019-08-21 12:22] VITALS: BP 123/69
[2019-08-21] MEDS: SODIUM CHLORIDE 0.9% 1,000 ML IV SCH (12:36)
[2019-08-21 19:28] VITALS: BP 126/72
[2019-08-22 01:12] VITALS: BP 140/76
[2019-08-22] MEDS: methylPREDNISolone SOD SUCC 125 MG/2 ML IVPush SCH (04:11)
[2019-08-22 05:13] LABS: BASOPHILS % (AUTO) 0 % (0-1); EOSINOPHILS % (AUTO) 0 % (1-7); LYMPHOCYTES # (AUTO) 0.67 x10^3/uL (1-3.4); LYMPHOCYTES % (AUTO) 6 % (22-44); MD NO; MEAN CORPUSCULAR HEMOGLOBIN 34.4 pg (27.5-34.5); MEAN CORPUSCULAR HGB CONC 33.7 g/dL (33.2-36.2); MEAN CORPUSCULAR VOLUME 102.1 fL (81-97); MONOCYTES # (AUTO) 0.37 x10^3/uL (0.2-0.8); MONOCYTES % (AUTO) 3 % (2-9); NEUTROPHILS # (AUTO) 10.09 x10^3/uL (1.8-6.8); NEUTROPHILS % (AUTO) 91 % (42-75); PLATELET COUNT 104 x10^3/uL (130-400); RED BLOOD COUNT 4.25 x10^6/uL (4.38-5.82); RED CELL DISTRIBUTION WIDTH 13.9 % (9.4-14.8)
[2019-08-22 05:18] LABS: ALBUMIN 3.2 g/dL (3.4-5.0); ANION GAP 9 mmol/L (5-15); CALCIUM 9.1 mg/dL (8.5-10.1); CHLORIDE 104 mmol/L (98-107)
[2019-08-22 05:22] LABS: CREATININE 1.08 mg/dL (0.7-1.3)
[2019-08-22 05:23] LABS: ALANINE AMINOTRANSFERASE 42 U/L (12-78); ALKALINE PHOSPHATASE 123 U/L (45-117); BILIRUBIN,TOTAL 4.1 mg/dL (0.2-1.0); TOTAL PROTEIN 7.5 g/dL (6.4-8.2)
[2019-08-22 06:15] VITALS: BP 137/70
== END 2019-08-22 07:35 | disposition left against medical advice (07) | DRG 189 ==
LOC: ED 05:11 → EDIP 06:57 → 5SO 08:26
PROVIDERS: ADMIT Internal Medicine; ATTEND Internal Medicine
DX: J96.01 Acute respiratory failure with hypoxia (principal); J44.1 Chronic obstructive pulmonary disease with (acute) exacerbation; I10 Essential (primary) hypertension; G47.33 Obstructive sleep apnea (adult) (pediatric); F10.10 Alcohol abuse, uncomplicated; R07.89 Other chest pain; R05 Cough; Z53.29 Procedure and treatment not carried out because of patient's decision for other reasons; Z87.891 Personal history of nicotine dependence
CPT/HCPCS: 36415; 71045; 80053; 82248; 83735; 83880; 84100; 84484; 85025; 87070; 87205; 93005; 94640; 99291; G0378; J1650; J2930; J3475; J7030

== ENCOUNTER 2020-09-06 16:56 | Emergency (ER) | payer OTHER ==
[~2020-09-06] VITALS: Ht 177.8 cm; Wt 86.5 kg
[~2020-09-06 16:56] MED LIST changes: +ALBU18HF INH; -ASPI-515 PO; +ASPI-963 PO; -ENAL20TA PO; +ENAL20TA9 PO; -ENAL5TAB PO; +ENAL5TAB10 PO; -FOLI-17 PO; +FOLI1TAB32 PO; +MULT-449 PO; -MULT1TAB60 PO; -NICO-487 TD; +NICO-587 TD; +PANT40TA6 PO; +PROP10TA16 PO; +TIOT18CA INH; +UMEC1DIS INH
[2020-09-06] MEDS ORDERED: METO25TA35 PO (17:13)
[2020-09-06 18:00] LABS: BASOPHILS % (AUTO) 1 % (0-1); EOSINOPHILS % (AUTO) 0 % (1-7); LYMPHOCYTES % (AUTO) 25 % (22-44); MEAN CORPUSCULAR HEMOGLOBIN 32.4 pg (27.5-34.5); MEAN CORPUSCULAR HGB CONC 33.6 g/dL (33.2-36.2); MEAN PLATELET VOLUME 7.8 fL (7.4-10.4); MONOCYTES % (AUTO) 8 % (2-9); NEUTROPHILS % (AUTO) 65 % (42-75); PLATELET COUNT 175 x10^3/uL (130-400); RED BLOOD COUNT 4.27 x10^6/uL (4.38-5.82)
[2020-09-06 18:02] LABS: ALBUMIN 3.5 g/dL (3.4-5.0); ANION GAP 16 mmol/L (5-15); CALCIUM 8.6 mg/dL (8.5-10.1); CHLORIDE 104 mmol/L (98-107); CREATININE 0.84 mg/dL (0.7-1.3)
[2020-09-06 18:05] LABS: MD NO
--- NOTE | 2020-09-06 18:51 | NUR ---
This pt is coming from home where he is supposed to be wearing an ortho-boot on his left foot after a recent injury. Pt was not wearing it but states he was using his walker when he fell. Pt reports drinking "2 cups of vodka" today. Denies LOC or hitting head. Pt states to this RN that he is supposed to wear 2L O2 at home but denied this to the provider. Pt presents to the ER A&Ox4. Brought home ortho-boot and wheelchair. Report to KHAI Cox, to assume full care. Pt intermittently sleeping.
--- NOTE | 2020-09-06 19:15 | NUR ---
pt resting on [facility]. provided water per pt request. VSS
[2020-09-06 19:55] VITALS: BP 116/66
--- NOTE | 2020-09-06 20:39 | NUR ---
PT ALERT AND ORIENTED X4. PT DISCHARGED IN HIS OWN WHEEL CHAIR. HE CALLED A FAMILY MEMBER WHO IS GOING TO PICK HIM UP.
== END 2020-09-06 20:41 | disposition home or self-care (01) ==
LOC: ED 19:40
DX: S82.432A Displaced oblique fracture of shaft of left fibula, initial encounter for closed fracture (principal); F10.229 Alcohol dependence with intoxication, unspecified; Y90.0 Blood alcohol level of less than 20 mg/100 ml; J44.9 Chronic obstructive pulmonary disease, unspecified; I10 Essential (primary) hypertension; W01.0XXA Fall on same level from slipping, tripping and stumbling without subsequent striking against object, initial encounter; Y93.89 Activity, other specified; Y92.410 Unspecified street and highway as the place of occurrence of the external cause; Y99.8 Other external cause status
CPT/HCPCS: 36415; 80048; 80320; 82040; 85025; 99283; G0480

== ENCOUNTER 2020-09-15 11:46 | Observation (INO) | payer OTHER ==
[~2020-09-15] VITALS: Ht 177.8 cm; Wt 94.5 kg
[~2020-09-15 11:46] MED LIST changes: +GUAI12009 PO; +METH4TAB PO
--- NOTE | 2020-09-15 12:06 | NUR ---
Coming from home where he lives alone. Gen weakness started this am. D/c'd from this hospital last week after being admitted for fall. VSS UPDATED ON ESTIMATED POC
--- NOTE | 2020-09-15 12:22 | NUR ---
[employer] CALLED TO CONSULT. PATIENT WITH MULTIPLE FALLS, LIVES ALONE, MULTIPLE HOSPITAL ADMISSIONS LATELY
[2020-09-15 12:33] LABS: BASOPHILS % (AUTO) 1 % (0-1); EOSINOPHILS % (AUTO) 3 % (1-7); LYMPHOCYTES % (AUTO) 35 % (22-44); MEAN CORPUSCULAR HEMOGLOBIN 32.5 pg (27.5-34.5); MEAN CORPUSCULAR HGB CONC 34.1 g/dL (33.2-36.2); MEAN PLATELET VOLUME 8.7 fL (7.4-10.4); MONOCYTES % (AUTO) 28 % (2-9); NEUTROPHILS % (AUTO) 34 % (42-75); PLATELET COUNT 85 x10^3/uL (130-400); RED BLOOD COUNT 3.66 x10^6/uL (4.38-5.82); RED CELL DISTRIBUTION WIDTH 15.7 % (9.4-14.8)
[2020-09-15 12:35] LABS: MD NO
[2020-09-15 12:46] LABS: ALANINE AMINOTRANSFERASE 115 U/L (12-78); ANION GAP 5 mmol/L (5-15); CALCIUM 8.3 mg/dL (8.5-10.1); CHLORIDE 106 mmol/L (98-107); CREATININE 0.72 mg/dL (0.7-1.3)
[2020-09-15 12:50] LABS: ALKALINE PHOSPHATASE 220 U/L (45-117); BILIRUBIN,TOTAL 3.4 mg/dL (0.2-1.0); TOTAL PROTEIN 6.1 g/dL (6.4-8.2); TROPONIN I < 0.015 ng/mL (0.000-0.045)
--- NOTE | 2020-09-15 13:29 | NUR ---
SW AT BEDSIDE
[2020-09-15] MEDS ORDERED: METH4TAB7 PO (13:49)
--- NOTE | 2020-09-15 14:04 | NUR ---
TP RN: PATIENT HAS [employer] MEDICARE, NOT CONTRACTED WITH THIS INSURANCE. [facility] FORM FAXED WITH CONFIRMATION RECEIVED, PLACED IN BLUE FOLDER. [facility] CALLED, SPOKE WITH EMANUEL, THEY ARE DECLINING PATIENT. EMAIL SENT.
--- NOTE | 2020-09-15 14:10 | NUR ---
PROVIED WITH [facility] COMPLETED (JUST FINISHED 5 DAY COARSE OF METHYLPREDNISONE) UP TO BEDSIDE TO VOID-SAMPLE SENT
[2020-09-15 14:31] LABS: MICROSCOPIC INDICATED
--- NOTE | 2020-09-15 14:32 | NUR ---
DR. JIANG (HOSPITALIST) AT BEDSIDE TO ASSESS
[2020-09-15 15:12] VITALS: BP 175/84
[2020-09-15] MEDS ORDERED: ONDANSETRON 2MG/ML, 2ML IVPush PRN (15:30)
[2020-09-15] MEDS ORDERED: ONDANSETRON ODT 4 MG PO PRN (15:30)
[2020-09-15] MEDS ORDERED: ALBUTEROL/IPRATROPIUM 2.5MG/0.5MG, 3 ML ONE (15:56)
[2020-09-15] MEDS ORDERED: LORazepam 0.5MG TABLET PO PRN (16:00)
[2020-09-15] MEDS ORDERED: ALBUTEROL HFA 90 MCG/SPRAY INH PRN ×2 (16:00)
[2020-09-15] MEDS ORDERED: LORazepam 1MG TABLET PO PRN ×4 (16:00)
[2020-09-15] MEDS ORDERED: LORazepam 2 MG/ML, 1ML IV PRN ×5 (16:00)
[2020-09-15 19:45] VITALS: BP 159/83
[2020-09-15] MEDS ORDERED: ALBUTEROL/IPRATROPIUM 2.5MG/0.5MG, 3 ML NPPB SCH (21:00)
[2020-09-15] MEDS: PROPRANOLOL 10 MG TABLET PO SCH (21:35)
[2020-09-16 02:03] VITALS: BP 181/90
[2020-09-16] MEDS ORDERED: ENALAPRILAT 1.25 MG/ML, 1ML IV PRN (02:30)
[2020-09-16 05:22] VITALS: BP 180/93
[2020-09-16] MEDS: PROPRANOLOL 10 MG TABLET PO SCH ×3 (05:22→21:19)
[2020-09-16 06:56] VITALS: BP 165/89
[2020-09-16] MEDS: PANTOPRAZOLE 40MG TABLET PO SCH (08:27)
[2020-09-16] MEDS ORDERED: ALBUTEROL/IPRATROPIUM 2.5MG/0.5MG, 3 ML NPPB SCH (09:00)
[2020-09-16] MEDS ORDERED: ALBUTEROL/IPRATROPIUM 2.5MG/0.5MG, 3 ML NPPB PRN (09:30)
[2020-09-16 13:43] VITALS: BP 161/84
[2020-09-16 21:18] VITALS: BP 175/67
[2020-09-17 01:02] VITALS: BP 157/75
[2020-09-17 05:13] VITALS: BP 160/82
[2020-09-17] MEDS: PROPRANOLOL 10 MG TABLET PO SCH ×2 (05:14→14:20)
[2020-09-17] MEDS: PANTOPRAZOLE 40MG TABLET PO SCH (07:01)
[2020-09-17 07:11] VITALS: BP 164/84
[2020-09-17] MEDS ORDERED: SODIUM CHLORIDE NASAL SPRAY 45ML BOTTLE NAS PRN (08:30)
[2020-09-17 13:23] VITALS: BP 144/81
[2020-09-17] MEDS ORDERED: SODI44SP NAS (15:54)
[2020-09-17 16:25] LABS: MEAN CORPUSCULAR HEMOGLOBIN 31.9 pg (27.5-34.5); MEAN CORPUSCULAR HGB CONC 32.9 g/dL (33.2-36.2); MEAN PLATELET VOLUME 8.9 fL (7.4-10.4); PLATELET COUNT 103 x10^3/uL (130-400); RED BLOOD COUNT 3.64 x10^6/uL (4.38-5.82); RED CELL DISTRIBUTION WIDTH 15.5 % (9.4-14.8)
[2020-09-17 16:31] LABS: ALANINE AMINOTRANSFERASE 77 U/L (12-78); ALBUMIN 2.7 g/dL (3.4-5.0); ANION GAP 6 mmol/L (5-15); CALCIUM 8.7 mg/dL (8.5-10.1); CHLORIDE 107 mmol/L (98-107); CREATININE 0.72 mg/dL (0.7-1.3)
[2020-09-17 16:34] LABS: ALKALINE PHOSPHATASE 129 U/L (45-117); BILIRUBIN,TOTAL 3.1 mg/dL (0.2-1.0)
[2020-09-17] MEDS ORDERED: PROP10TA16 PO ×3 (16:52→17:27)
[2020-09-17 16:57] LABS: MD YES
[2020-09-17 17:03] LABS: BANDS%(MANUAL) 2 % (0-7); BASOS#(MANUAL) 0.05 x10^3/uL (0-0.1); BASOS% (MANUAL) 1 % (0-1); EOS#(MANUAL) 0.14 x10^3/uL (0.0-0.4); EOS% (MANUAL) 3 % (1-7); LYMPH#(MANUAL) 1.68 x10^3/uL (1-3.4); LYMPHS% (MANUAL) 35 % (22-44); MONOS#(MANUAL) 0.58 x10^3/uL (0.3-2.7); MONOS% (MANUAL) 12 % (2-9); REACTIVE LYMPHS % (MANUAL) 2 % (0-0); SEG#(MANUAL) 2.16 x10^3/uL (1.8-6.8); SEGS% (MANUAL) 45 % (42-75)
[2020-09-17 17:07] LABS: <PLATELET ESTIMATE> DECREASED; <RBC MORPHOLOGY> NORMAL; LARGE PLATELETS 1+
== END 2020-09-17 18:00 | disposition home or self-care (01) ==
LOC: ED 11:50 → INTOOBSV 14:16 → EDIP 14:16 → SUATTDRO 14:17 → 3N 15:10
PROVIDERS: ADMIT Family Medicine; ATTEND Internal Medicine
DX: R53.1 Weakness (principal); R53.81 Other malaise; R62.7 Adult failure to thrive; J44.9 Chronic obstructive pulmonary disease, unspecified; K70.10 Alcoholic hepatitis without ascites; K70.30 Alcoholic cirrhosis of liver without ascites; E80.6 Other disorders of bilirubin metabolism; I11.0 Hypertensive heart disease with heart failure; I50.30 Unspecified diastolic (congestive) heart failure; I85.10 Secondary esophageal varices without bleeding; K92.2 Gastrointestinal hemorrhage, unspecified; I25.2 Old myocardial infarction; Z87.891 Personal history of nicotine dependence; Z79.899 Other long term (current) drug therapy
CPT/HCPCS: 36415; 71045; 80053; 81001; 84484; 85025; 93005; 96374; 97163; 97166; 97530; 99285; G0378

== ENCOUNTER 2020-10-10 15:26 | Emergency (ER) | payer OTHER ==
[~2020-10-10] VITALS: Ht 177.8 cm; Wt 87.0 kg
[~2020-10-10 15:26] MED LIST changes: +METH4TAB7 PO; +SODI44SP NAS
--- NOTE | 2020-10-10 15:46 | NUR ---
Rejport received from meal break RN and care assumed. Pt with slurred speech noted, L ankle swelling with pain, and MD just leaving room from his exam.
--- NOTE | 2020-10-10 16:40 | NUR ---
at bedside to discuss plan of care. MD states pt is to be placed in air splint and d/c'd home. Pt aware of need for continued use of orthoboot at home as soon as he arrives and to follow up with an ortho doc.
--- NOTE | 2020-10-10 17:00 | NUR ---
Air spline applied to L ankle by generation engineering technologist, good distal CMS on reassessment after application. Pt assisted with getting dressed and provided a wheelchair for assistance out to lobby where ride will pick him up.
[2020-10-10 17:39] VITALS: BP 114/72
== END 2020-10-10 17:42 | disposition home or self-care (01) ==
LOC: ED 15:45
DX: S82.832A Other fracture of upper and lower end of left fibula, initial encounter for closed fracture (principal); I10 Essential (primary) hypertension; J44.9 Chronic obstructive pulmonary disease, unspecified; Z87.891 Personal history of nicotine dependence; X50.1XXA Overexertion from prolonged static or awkward postures, initial encounter; Y93.89 Activity, other specified; Y92.009 Unspecified place in unspecified non-institutional (private) residence as the place of occurrence of the external cause; Y99.8 Other external cause status
CPT/HCPCS: 99282

== ENCOUNTER 2020-12-17 15:41 | Inpatient (IN) | payer OTHER ==
[~2020-12-17] VITALS: Ht 177.8 cm; Wt 92.0 kg
[~2020-12-17 15:41] MED LIST changes: +FOLIC ACID 1 MG TABLET PO ONE
[2020-12-17] MEDS ORDERED: PLEASE ENTER HEIGHT AND WEIGHT MC SCH (16:00)
[2020-12-17] MEDS ORDERED: ALBUTEROL/IPRATROPIUM 2.5MG/0.5MG, 3 ML NPPB ONE (16:00)
[2020-12-17] MEDS ORDERED: ALBUTEROL/IPRATROPIUM 2.5MG/0.5MG, 3 ML ONE ×2 (16:16→17:19)
[2020-12-17 16:20] LABS: BASOPHILS % (AUTO) 2 % (0-1); EOSINOPHILS % (AUTO) 4 % (1-7); LYMPHOCYTES % (AUTO) 32 % (22-44); MEAN CORPUSCULAR HEMOGLOBIN 33.2 pg (27.5-34.5); MEAN CORPUSCULAR HGB CONC 33.4 g/dL (33.2-36.2); MEAN PLATELET VOLUME 7.8 fL (7.4-10.4); MONOCYTES % (AUTO) 13 % (2-9); NEUTROPHILS % (AUTO) 49 % (42-75); PLATELET COUNT 100 x10^3/uL (130-400); RED BLOOD COUNT 4.22 x10^6/uL (4.38-5.82); RED CELL DISTRIBUTION WIDTH 16.4 % (9.4-14.8)
[2020-12-17 16:23] LABS: ALBUMIN 3.1 g/dL (3.4-5.0); ANION GAP 10 mmol/L (5-15); CALCIUM 8.4 mg/dL (8.5-10.1); CHLORIDE 106 mmol/L (98-107); CREATININE 0.74 mg/dL (0.7-1.3)
--- NOTE | 2020-12-17 16:31 | NUR ---
gunnar watts at bedside for eval. meds per jul. instructed on how to do duoneb. as
[2020-12-17 16:38] LABS: TROPONIN I < 0.015 ng/mL (0.000-0.045)
[2020-12-17] MEDS ORDERED: COMBIVENT INH PRN (17:00)
[2020-12-17] MEDS ORDERED: ALBUTEROL/IPRATROPIUM 2.5MG/0.5MG, 3 ML NPPB SCH (17:00)
[2020-12-17] MEDS: ALBUTEROL/IPRATROPIUM 2.5MG/0.5MG, 3 ML NPPB SCH ×2 (17:22→18:14)
--- NOTE | 2020-12-17 17:22 | NUR ---
pt desatting on 6lnc. 2nd duo neb tx in progress. aware. pt tbadm. exp wheezes noted JANES. given blankets. as
--- NOTE | 2020-12-17 18:49 | NUR ---
pt contineus to await admit bed. nad. vss. as
--- NOTE | 2020-12-17 19:09 | NUR ---
pt placed on 6 l o2 via oxymask. as
[2020-12-17] MEDS ORDERED: METO25TA35 PO (19:45)
--- NOTE | 2020-12-17 19:45 | NUR ---
attempt to call report x1
[2020-12-17] MEDS ORDERED: MELATONIN 5 MG TABLET PO PRN (20:00)
[2020-12-17] MEDS ORDERED: LORazepam 1MG TABLET PO PRN ×3 (20:00)
[2020-12-17] MEDS ORDERED: ENALAPRILAT 1.25 MG/ML, 2ML IVPush PRN (20:00)
[2020-12-17] MEDS ORDERED: DOCUSATE 100 MG CAPSULE PO PRN (20:00)
[2020-12-17] MEDS ORDERED: LIDODERM 5% PATCH TD PRN (20:00)
[2020-12-17] MEDS ORDERED: ALUMINUM/MAG/SIMETHICONE 30 ML UDC PO PRN (20:00)
[2020-12-17] MEDS ORDERED: LIDODERM REMOVE PATCH NOTE XX PRN (20:30)
[2020-12-17 21:00] VITALS: BP 157/74
[2020-12-17] MEDS: ALBUTEROL HFA 90 MCG/SPRAY INH SCH (21:00)
[2020-12-17 21:59] LABS: TROPONIN I < 0.015 ng/mL (0.000-0.045)
[2020-12-18] MEDS: LORazepam 0.5MG TABLET PO PRN (00:03)
[2020-12-18] MEDS ORDERED: FOLIC ACID 1 MG TABLET ONE (00:42)
[2020-12-18 00:53] VITALS: BP 169/81
[2020-12-18 02:31] LABS: ALANINE AMINOTRANSFERASE 47 U/L (12-78); ALBUMIN 2.9 g/dL (3.4-5.0); ANION GAP 13 mmol/L (5-15); CHLORIDE 104 mmol/L (98-107); CREATININE 0.62 mg/dL (0.7-1.3)
[2020-12-18 02:33] LABS: ALKALINE PHOSPHATASE 98 U/L (45-117); BILIRUBIN,TOTAL 2.5 mg/dL (0.2-1.0); TOTAL PROTEIN 7.2 g/dL (6.4-8.2)
[2020-12-18 02:45] LABS: TROPONIN I < 0.015 ng/mL (0.000-0.045)
[2020-12-18] MEDS: ALBUTEROL HFA 90 MCG/SPRAY INH SCH ×4 (05:52→20:45)
[2020-12-18 06:51] LABS: MEAN CORPUSCULAR HEMOGLOBIN 33.9 pg (27.5-34.5); MEAN CORPUSCULAR HGB CONC 33.8 g/dL (33.2-36.2); MEAN PLATELET VOLUME 9.6 fL (7.4-10.4); RED BLOOD COUNT 4.06 x10^6/uL (4.38-5.82); RED CELL DISTRIBUTION WIDTH 16.6 % (9.4-14.8)
[2020-12-18 07:22] LABS: BAND#(MANUAL) 0.12 x10^3/uL; BANDS%(MANUAL) 4 % (0-7); LYMPH#(MANUAL) 0.29 x10^3/uL (1-3.4); LYMPHS% (MANUAL) 10 % (22-44); MONOS#(MANUAL) 0.09 x10^3/uL (0.3-2.7); MONOS% (MANUAL) 3 % (2-9)
[2020-12-18 07:23] LABS: BASOS#(MANUAL) 0.03 x10^3/uL (0-0.1); BASOS% (MANUAL) 1 % (0-1); SEG#(MANUAL) 2.38 x10^3/uL (1.8-6.8); SEGS% (MANUAL) 82 % (42-75)
[2020-12-18 07:25] LABS: <PLATELET ESTIMATE> DECREASED; <PLT MORPHOLOGY> NORMAL PLT MORPH; <RBC MORPHOLOGY> NORMAL
[2020-12-18 07:30] VITALS: BP 127/73
[2020-12-18 07:33] LABS: PLATELET COUNT 100 x10^3/uL (130-400)
[2020-12-18] MEDS: MULTIVITAMINS/MINERALS TABLET PO SCH (09:07)
[2020-12-18] MEDS: METOPROLOL TARTRATE 25 MG TAB PO SCH (09:07)
[2020-12-18] MEDS: LORazepam 1MG TABLET PO PRN ×2 (09:10→13:36)
[2020-12-18] MEDS ORDERED: OMNIPAQUE 350 MG/ML, 75ML BOTTLE ONE (11:45)
[2020-12-18 14:03] VITALS: BP 150/77
[2020-12-18] MEDS: methylPREDNISolone SOD SUCC 40 MG/ML IV SCH (14:15)
[2020-12-18 20:42] VITALS: BP 143/78
[2020-12-19] MEDS: methylPREDNISolone SOD SUCC 40 MG/ML IV SCH ×2 (02:49→15:29)
[2020-12-19 02:51] VITALS: BP 154/75
[2020-12-19 04:52] LABS: BASOPHILS % (AUTO) 0 % (0-1); EOSINOPHILS % (AUTO) 0 % (1-7); LYMPHOCYTES % (AUTO) 15 % (22-44); MEAN CORPUSCULAR HEMOGLOBIN 33.5 pg (27.5-34.5); MEAN CORPUSCULAR HGB CONC 33.6 g/dL (33.2-36.2); MEAN PLATELET VOLUME 8.3 fL (7.4-10.4); MONOCYTES % (AUTO) 7 % (2-9); NEUTROPHILS % (AUTO) 78 % (42-75); PLATELET COUNT 66 x10^3/uL (130-400); RED BLOOD COUNT 3.98 x10^6/uL (4.38-5.82); RED CELL DISTRIBUTION WIDTH 16.5 % (9.4-14.8)
[2020-12-19 05:01] LABS: CHLORIDE 103 mmol/L (98-107)
[2020-12-19 05:05] LABS: ANION GAP 7 mmol/L (5-15); CALCIUM 8.7 mg/dL (8.5-10.1); CREATININE 0.66 mg/dL (0.7-1.3)
[2020-12-19] MEDS: ALBUTEROL HFA 90 MCG/SPRAY INH SCH ×4 (06:08→21:34)
[2020-12-19 07:18] VITALS: BP 135/80
[2020-12-19] MEDS: MULTIVITAMINS/MINERALS TABLET PO SCH (09:00)
[2020-12-19] MEDS: METOPROLOL TARTRATE 25 MG TAB PO SCH (09:15)
[2020-12-19] MEDS: CEFTRIAXONE 2 GM in DEXTROSE 5% 50 ML IVPB SCH (11:31)
[2020-12-19 13:11] VITALS: BP 135/79
[2020-12-19 20:02] VITALS: BP 151/80
[2020-12-19] MEDS: LORazepam 0.5MG TABLET PO PRN (21:34)
[2020-12-20 03:12] VITALS: BP 150/82
[2020-12-20] MEDS: methylPREDNISolone SOD SUCC 40 MG/ML IV SCH ×2 (03:13→18:39)
[2020-12-20 05:47] LABS: BASOPHILS % (AUTO) 0 % (0-1); EOSINOPHILS % (AUTO) 0 % (1-7); LYMPHOCYTES % (AUTO) 11 % (22-44); MEAN CORPUSCULAR HEMOGLOBIN 34.2 pg (27.5-34.5); MEAN CORPUSCULAR HGB CONC 34.1 g/dL (33.2-36.2); MEAN PLATELET VOLUME 9.1 fL (7.4-10.4); MONOCYTES % (AUTO) 6 % (2-9); NEUTROPHILS % (AUTO) 83 % (42-75); PLATELET COUNT 67 x10^3/uL (130-400); RED BLOOD COUNT 3.96 x10^6/uL (4.38-5.82); RED CELL DISTRIBUTION WIDTH 16.2 % (9.4-14.8)
[2020-12-20 05:55] LABS: ANION GAP 6 mmol/L (5-15); CALCIUM 8.6 mg/dL (8.5-10.1); CHLORIDE 102 mmol/L (98-107); CREATININE 0.58 mg/dL (0.7-1.3)
[2020-12-20] MEDS: ALBUTEROL HFA 90 MCG/SPRAY INH SCH ×4 (06:01→21:47)
[2020-12-20 08:14] VITALS: BP 137/75
[2020-12-20] MEDS: MULTIVITAMINS/MINERALS TABLET PO SCH (09:00)
[2020-12-20] MEDS: THIAMINE 100MG TABLET PO SCH (10:08)
[2020-12-20] MEDS: FOLIC ACID 1 MG TABLET PO SCH (10:08)
[2020-12-20] MEDS: METOPROLOL TARTRATE 25 MG TAB PO SCH (10:08)
[2020-12-20] MEDS: CEFTRIAXONE 2 GM in DEXTROSE 5% 50 ML IVPB SCH (10:10)
[2020-12-20 12:57] VITALS: BP 137/68
[2020-12-20 21:46] VITALS: BP 151/85
[2020-12-21 01:47] VITALS: BP 143/82
[2020-12-21] MEDS: ALBUTEROL HFA 90 MCG/SPRAY INH SCH ×4 (06:07→21:51)
[2020-12-21] MEDS: methylPREDNISolone SOD SUCC 40 MG/ML IV SCH ×2 (06:07→18:08)
[2020-12-21 06:34] VITALS: BP 160/79
[2020-12-21] MEDS: MULTIVITAMINS/MINERALS TABLET PO SCH (09:00)
[2020-12-21] MEDS: THIAMINE 100MG TABLET PO SCH (10:45)
[2020-12-21] MEDS: CEFTRIAXONE 2 GM in DEXTROSE 5% 50 ML IVPB SCH (10:45)
[2020-12-21] MEDS: FOLIC ACID 1 MG TABLET PO SCH (10:45)
[2020-12-21] MEDS: METOPROLOL TARTRATE 25 MG TAB PO SCH (10:45)
[2020-12-21 12:38] VITALS: BP 143/78
[2020-12-21 20:00] VITALS: BP 153/80
[2020-12-22 00:24] VITALS: BP 145/80
[2020-12-22] MEDS: ALBUTEROL HFA 90 MCG/SPRAY INH SCH ×3 (05:46→16:00)
[2020-12-22] MEDS: methylPREDNISolone SOD SUCC 40 MG/ML IV SCH (05:46)
[2020-12-22 08:17] VITALS: BP 172/77
[2020-12-22] MEDS: FOLIC ACID 1 MG TABLET PO SCH (08:20)
[2020-12-22] MEDS: METOPROLOL TARTRATE 25 MG TAB PO SCH (08:20)
[2020-12-22] MEDS: THIAMINE 100MG TABLET PO SCH (08:20)
[2020-12-22] MEDS: MULTIVITAMINS/MINERALS TABLET PO SCH (08:20)
[2020-12-22] MEDS: CEFTRIAXONE 2 GM in DEXTROSE 5% 50 ML IVPB SCH (10:30)
[2020-12-22] MEDS ORDERED: THIA100T67 PO (13:29)
[2020-12-22] MEDS ORDERED: MULT-484 PO (13:29)
[2020-12-22 13:34] VITALS: BP 159/80
[2020-12-22] MEDS ORDERED: PRED10TA PO (13:43)
[2020-12-22] MEDS ORDERED: AMOX1TAB64 PO (13:43)
[2020-12-22] MEDS ORDERED: PANT40GR PO (13:43)
== END 2020-12-22 17:46 | disposition home or self-care (01) | DRG 190 ==
LOC: ED 16:37 → EDIP 17:48 → 3N 20:17
PROVIDERS: ADMIT Internal Medicine; ATTEND Internal Medicine
DX: J44.1 Chronic obstructive pulmonary disease with (acute) exacerbation (principal); J96.01 Acute respiratory failure with hypoxia; I50.32 Chronic diastolic (congestive) heart failure; J44.0 Chronic obstructive pulmonary disease with (acute) lower respiratory infection; K70.30 Alcoholic cirrhosis of liver without ascites; F10.129 Alcohol abuse with intoxication, unspecified; J20.9 Acute bronchitis, unspecified; D69.59 Other secondary thrombocytopenia; D73.1 Hypersplenism; I11.0 Hypertensive heart disease with heart failure; Y90.8 Blood alcohol level of 240 mg/100 ml or more; Z20.822 Contact with and (suspected) exposure to COVID-19; K70.9 Alcoholic liver disease, unspecified; B96.3 Hemophilus influenzae [H. influenzae] as the cause of diseases classified elsewhere; Z87.891 Personal history of nicotine dependence; Z79.899 Other long term (current) drug therapy
CPT/HCPCS: 36415; 71045; 71260; 80048; 80053; 80320; 82040; 83880; 84145; 84484; 85025; 85379; 87070; 87077; 87205; 93005; G0378; J0696; Q9967; U0005; G0480; J2920; J7512; U0003